=== PATIENT | female | born 1930 | race Caucasian/White ===

== ENCOUNTER 2017-06-01 22:41 | Inpatient (IN) | payer MEDICARE ==
[~2017-06-01] VITALS: Ht 180.3 cm; Wt 60.8 kg
[2017-06-01] MEDS ORDERED: METO-357 PO (23:58)
[2017-06-01] MEDS ORDERED: MAGN400T6 PO (23:58)
[2017-06-01] MEDS ORDERED: [UNRECOGNIZED DRUG - CODE] SQ (23:58)
[2017-06-01] MEDS ORDERED: VENL150T PO (23:58)
[2017-06-01] MEDS ORDERED: DIVA125C5 PO (23:58)
[2017-06-01] MEDS ORDERED: ASPI-605 PO (23:58)
[2017-06-01] MEDS ORDERED: DIVA250T6 PO (23:58)
--- NOTE | 2017-06-02 | NUR ---
Patient medically cleared by Dr. Davis.
--- NOTE | 2017-06-02 00:50 | NUR ---
Spoke with Kris Dorsey, states will come to evaluate patient.
--- NOTE | 2017-06-02 01:20 | NUR ---
Kris Dorsey at bedside for psych eval.
--- NOTE | 2017-06-02 02:49 | NUR ---
Passed report to Carlie Underwood.
--- NOTE | 2017-06-02 04:00 | NUR ---
AT APPROX 0330 ADMITTED 87 YEAR OLD FEMALE TO [facility] ON A 5150 HOLD FOR GD. PATIENT LIVES AT [facility] IN [place] AND WAS TRANSFERRED TO [facility] ON 05/25/17 DUE TO A RECENT FALL. PER HOLD PATIENT BECOME AGGRESSIVE TOWARD STAFF, THROWING OBJECTS AT STAFF, REFUSING CARE, COMBATIVE, AGITATION, REFUSING ASSISTANCE WITH AMBULATION WHICH LEAD TO SEVERAL FALLS AT HER FACILITY. HOLD STARED ON 06/02/17 AT 0130 AND WILL END ON 06/05/17 AT 0130. PT WAS MEDICALLY CLEARED AT [facility]. UA WAS NEGATIVE, CT SCAN NEGATIVE. CHEST X RAY NEGATIVE, NO FX. VALPROIC ACID LEVELS 59. PT HAS A H/O A-FIB, HTN, CKD, AND DEPRESSION. AT TIME OF ADMISSION, PT WAS NOTED A/O X1, CONFUSED. WAS NOTED YELLING, BELLIGERENT, COMBATIVE, PARANOID, DELUSIONAL. V/S STABLE AT THIS TIME. BODY ASSESSMENT: MULTIPLE FACIAL BRUISING NOTED WITH EDEMA ON LEFT CHEEK. ABRASION NOTED IN LEFT AND RIGHT LATERAL ASPECT OF FOREHEAD. LACERATION/SUTURES NOTED IN RIGHT LATERAL ASPECT OF FOREHEAD, ECCHYMOSIS NOTED ON LEFT AND RIGHT SIDE OF NECK, LEFT POSTERIOR SHOULDER, LEFT FLANK, AND RIGHT KNEE. RED RASHES NOTED ON BOTH LEFT AND RIGHT BREAST AND UNDER ARM. PT WILL BE UNDER THE CARE OF DR. OLEARY.
[2017-06-02] MEDS ORDERED: MAG HYDROX/AL HYDROX/SIMETH 30 ML LIQUID UDC PO PRN (05:15)
[2017-06-02] MEDS ORDERED: MAGNESIUM HYDROXIDE 30 ML LIQUID UDC PO PRN (05:15)
[2017-06-02 06:02] VITALS: BP 112/67
--- NOTE | 2017-06-02 07:01 | NUR ---
PATIENT REFUSED BLOOD DRAWN, CONTINUE YELLING AND BELLIGERENT. WILL CONTINUE TO MONITOR.
--- NOTE | 2017-06-02 07:27 | NUR ---
SPOKE VIA PHONE CALL WITH DAUGHTER AUSTEN WHO SHE STATED THAT SHE HAS A POWER OF FINANCE EFFECTIVENESS MANAGER. SHE ALSO STATED THAT PT WAS LIVING IN A FACILITY UP UNTIL FEB 2017, THEN SHE COME TO LIVE WITH HER. AT THAT TIME, BX STARTED, DELUSIONS PARANOID, HAVING MULTIPLE FALL. SHE ALSO STATED THAT SHE IS UP TO DAY WITH IMMUNIZATIONS. WILL CONTINUE TO MONITOR.
--- NOTE | 2017-06-02 08:00 | NUR ---
Gps/Supervisor Estimator And Drafter- Loud kept talking to herself. Tried to reorient patient, , confused,labile, unable tyo follow directions.Refusing to eat breakfast when set up. Safety reviewed emphasized. Multiple patches of bruising to her neck,face and extremities, right side of forehead sutures , rashes underneath her breast. Resistive to her am care.
--- NOTE | 2017-06-02 14:27 | NUR ---
Gps/And Drying Supervisor Cooking Casing- Constantly talking incoherently, singing at times, calling out , when asked why she's yelling and calling out, pt. repeated same questions asked, and perseverate .
[2017-06-02 15:00] VITALS: BP 148/82
[2017-06-02] MEDS: OLANZAPINE ZYDIS 5 MG TAB.RAPDIS PO SCH (17:00)
[2017-06-02] MEDS: DIVALPROEX 125 MG TABLET.DR PO SCH (17:00)
[2017-06-02] MEDS ORDERED: CLONIDINE-TTS 1 PATCH TD SCH (20:00)
[2017-06-02 20:19] VITALS: BP 149/78
[2017-06-02] MEDS: DIVALPROEX 250 MG TABLET.DR PO SCH (20:36)
[2017-06-02] MEDS: NYSTATIN CREAM 30 GM TUBE TOP SCH (20:36)
--- NOTE | 2017-06-02 23:32 | NUR ---
Pt's BP AND HR ELEVATED AT BEGINNING OF SHIFT, DR REYNOLDS NOTIFIED, CATAPRES 0.1mg PATCH ORDERED AND ADMINISTERED. UPON RE-CHECK IN 1 HOUR, BP DECREASED, BUT HR REMAINED ELEVATED. DR REYNOLDS NOTIFIED, STAT EKG ORDERED, RESULTS REPORTED TO DR REYNOLDS. Pt ASYMPTOMATIC.
[2017-06-03 07:30] VITALS: BP 114/60
[2017-06-03 08:13] LABS: ALANINE AMINOTRANSFERASE 23 U/L (14-59); ALKALINE PHOSPHATASE 57 U/L (50-136); ASPARTATE AMINOTRANSFERASE 23 U/L (15-37); BILIRUBIN,TOTAL 0.4 mg/dL (0.2-1.0); CARBON DIOXIDE 28 mmol/L (21-32); CHLORIDE 108 mmol/L (98-107); CREATININE 1.3 mg/dL (0.6-1.3); GLUCOSE 69 mg/dL (74-106); MAGNESIUM 2.1 mg/dL (1.8-2.4); POTASSIUM 3.8 mmol/L (3.5-5.1); UREA NITROGEN, BLOOD 15 mg/dL (7-18)
[2017-06-03 08:39] LABS: BASOPHILS # (AUTO) 0.1 K/uL (0.0-8.0); BASOPHILS % (AUTO) 0.9 % (0.0-2.0); EOSINOPHILS # (AUTO) 0.3 K/uL (0.0-0.7); EOSINOPHILS % (AUTO) 4.5 % (0.0-7.0); HEMOGLOBIN 10.9 g/dL (10.9-14.3); LYMPHOCYTES # (AUTO) 2.2 K/uL (20.0-40.0); LYMPHOCYTES % (AUTO) 29.1 % (20.5-51.5); MEAN CORPUSCULAR HEMOGLOBIN 31.9 uug (24.7-32.8); MEAN CORPUSCULAR HGB CONC 33 g/dL (32.3-35.6); MONOCYTES # (AUTO) 0.7 K/uL (2.0-10.0); MONOCYTES % (AUTO) 9.8 % (0.0-11.0); NEUTROPHILS # (AUTO) 4.1 K/uL (1.8-8.9); NEUTROPHILS % (AUTO) 55.7 % (38.5-71.5); PLATELET COUNT (AUTO) 263 K/uL (179-408); RED BLOOD CELL COUNT(AUTO) 3.41 MIL/uL (3.63-4.92); WHITE BLOOD COUNT (AUTO) 7.4 K/uL (3.8-11.8)
[2017-06-03 09:28] LABS: IRON, SERUM 69 ug/dL (50-175)
--- NOTE | 2017-06-03 11:00 | NUR ---
Gps/Derrick Car Operator- Noted patient was cooperative with Physical therapist, was able to ambulate with assist using the front wheel walker .Safety reviewed emphasized, also re offered new medications order, was able to take them with min. prompting with apple sauce, take, whole one pill at a time.
[2017-06-03] MEDS: ASPIRIN EC 81 MG TABLET.DR PO SCH (11:20)
[2017-06-03] MEDS: MAGNESIUM OXIDE 400 MG TABLET PO SCH (11:20)
[2017-06-03] MEDS: OLANZAPINE ZYDIS 5 MG TAB.RAPDIS PO SCH ×2 (11:20→16:18)
[2017-06-03] MEDS: DIVALPROEX 125 MG TABLET.DR PO SCH ×2 (11:20→16:18)
[2017-06-03] MEDS: VENLAFAXINE XR 150 MG CAP.SR.24H PO SCH (11:20)
[2017-06-03] MEDS: METOPROLOL SUCCINATE XL 50 MG TAB.SR.24H PO SCH (11:21)
[2017-06-03] MEDS: NYSTATIN CREAM 30 GM TUBE TOP SCH ×2 (13:39→20:45)
--- NOTE | 2017-06-03 15:14 | NUR ---
Initial DC Plan: Patient currently lives in an independent living facility [[address] [place] [address]]. Patient's daughter is trying to find an assisted living for patient. SW will follow up with MD, patient, and patient's daughter Za [[phone]] to discuss most appropriate discharge plans. SW will form a safe and proper discharge.
[2017-06-03 16:10] VITALS: BP 156/90
--- NOTE | 2017-06-03 18:47 | NUR ---
Gps/Bulb Planter- Called Trihsa Foster RUG FRAME MOUNTER to double check and clarified orders for CT chest angio, called patient's daughter Za explained reasons and procedure, a telephone consent was obtained signed by Bari DOYLE and Gustabo SELLERS. Saline lock insyte of #20 inserted on her left AC. secured with tape. Radiology was called informed .
[2017-06-03] MEDS ORDERED: NORMAL SALINE FLUSH 10 ML DISP.SYRIN ONE (19:11)
[2017-06-03] MEDS ORDERED: IV NORMAL SALINE 100 ML ONE (19:12)
[2017-06-03] MEDS ORDERED: IOHEXOL 350 100 ML INFUS..BTL ONE (19:12)
[2017-06-03] MEDS ORDERED: CELLULOSE,OXIDIZED 2x3 MC ONE (19:12)
[2017-06-03 20:41] VITALS: BP 128/84
[2017-06-03] MEDS: DIVALPROEX 250 MG TABLET.DR PO SCH (20:45)
[2017-06-03] MEDS: LORAZEPAM 0.5 MG TABLET PO PRN (20:46)
--- NOTE | 2017-06-04 01:37 | NUR ---
GPS/NSG Patient first observed awake in hallway, restless sitting in lina-chair. Confused, disorganized. Patient scheduled for CT scan with contrast. Patient escorted to radiology by DATA COLLECTION ASSOCIATE at approx 2200 hours via wheelchair. Patient returned to the unit about thirty minutes later, with a warm compress applied by staff in radiology, patient's IV line had infiltrated, one and a half hour later physician contacted to inform that swelling remained present, saline lock removed and arm elevated. Dr. Puentes's order was to apply a cold compress for fifteen minutes and reassess in a.m. Will continue to monitor and contact physician as needed.
[2017-06-04 07:30] VITALS: BP 138/97
[2017-06-04] MEDS: ASPIRIN EC 81 MG TABLET.DR PO SCH (09:47)
[2017-06-04] MEDS: VENLAFAXINE XR 150 MG CAP.SR.24H PO SCH (09:47)
[2017-06-04] MEDS: MAGNESIUM OXIDE 400 MG TABLET PO SCH (09:47)
[2017-06-04] MEDS: DIVALPROEX 125 MG TABLET.DR PO SCH ×2 (09:47→17:24)
[2017-06-04] MEDS: METOPROLOL SUCCINATE XL 50 MG TAB.SR.24H PO SCH (09:48)
[2017-06-04] MEDS: OLANZAPINE ZYDIS 5 MG TAB.RAPDIS PO SCH ×2 (09:48→17:24)
[2017-06-04] MEDS: NYSTATIN CREAM 30 GM TUBE TOP SCH ×2 (09:48→21:05)
[2017-06-04 15:00] VITALS: BP 102/79
[2017-06-04 20:00] VITALS: BP 104/72
[2017-06-04] MEDS: LORAZEPAM 0.5 MG TABLET PO PRN (21:04)
[2017-06-04] MEDS: DIVALPROEX 250 MG TABLET.DR PO SCH (21:04)
[2017-06-05 07:30] VITALS: BP 155/95
[2017-06-05] MEDS: METOPROLOL SUCCINATE XL 50 MG TAB.SR.24H PO SCH (09:52)
[2017-06-05] MEDS: ASPIRIN EC 81 MG TABLET.DR PO SCH (09:53)
[2017-06-05] MEDS: OLANZAPINE ZYDIS 5 MG TAB.RAPDIS PO SCH ×2 (09:53→17:34)
[2017-06-05] MEDS: VENLAFAXINE XR 150 MG CAP.SR.24H PO SCH (09:53)
[2017-06-05] MEDS: DIVALPROEX 125 MG TABLET.DR PO SCH ×2 (09:53→17:35)
[2017-06-05] MEDS: MAGNESIUM OXIDE 400 MG TABLET PO SCH (13:47)
[2017-06-05] MEDS: NYSTATIN CREAM 30 GM TUBE TOP SCH ×2 (13:50→21:18)
[2017-06-05 16:17] VITALS: BP 137/50
[2017-06-05] MEDS: LORAZEPAM 0.5 MG TABLET PO PRN (18:07)
[2017-06-05 20:07] VITALS: BP 154/84
[2017-06-05] MEDS: DIVALPROEX 250 MG TABLET.DR PO SCH (21:18)
[2017-06-05] MEDS: Z GUARD REMEDY PASTE 57 GM TUBE TOP SCH (21:18)
--- NOTE | 2017-06-06 07:30 | NUR ---
Sleeping comfortably. Not in distress
[2017-06-06 07:48] LABS: BASOPHILS # (AUTO) 0.1 K/uL (0.0-8.0); EOSINOPHILS # (AUTO) 0.4 K/uL (0.0-0.7); EOSINOPHILS % (AUTO) 5.5 % (0.0-7.0); HEMATOCRIT 34.3 % (31.2-41.9); HEMOGLOBIN 11.3 g/dL (10.9-14.3); LYMPHOCYTES % (AUTO) 25.1 % (20.5-51.5); MEAN CORPUSCULAR HEMOGLOBIN 31.8 uug (24.7-32.8); MEAN CORPUSCULAR HGB CONC 33 g/dL (32.3-35.6); MEAN CORPUSCULAR VOLUME 96.3 fL (75.5-95.3); MONOCYTES # (AUTO) 0.7 K/uL (2.0-10.0); MONOCYTES % (AUTO) 8.7 % (0.0-11.0); NEUTROPHILS # (AUTO) 4.7 K/uL (1.8-8.9); NEUTROPHILS % (AUTO) 59.7 % (38.5-71.5); PLATELET COUNT (AUTO) 269 K/uL (179-408); RED BLOOD CELL COUNT(AUTO) 3.56 MIL/uL (3.63-4.92); WHITE BLOOD COUNT (AUTO) 7.8 K/uL (3.8-11.8)
[2017-06-06 07:56] LABS: ALANINE AMINOTRANSFERASE 20 U/L (14-59); ALKALINE PHOSPHATASE 57 U/L (50-136); ASPARTATE AMINOTRANSFERASE 30 U/L (15-37); BILIRUBIN,TOTAL 0.3 mg/dL (0.2-1.0); CARBON DIOXIDE 25 mmol/L (21-32); CHLORIDE 110 mmol/L (98-107); CREATININE 1.6 mg/dL (0.6-1.3); GLUCOSE 74 mg/dL (74-106); MAGNESIUM 2.1 mg/dL (1.8-2.4); PHOSPHOROUS 4.7 mg/dL (2.5-4.9); POTASSIUM 4.3 mmol/L (3.5-5.1); TOTAL PROTEIN, SERUM 6.2 g/dL (6.4-8.2); UREA NITROGEN, BLOOD 23 mg/dL (7-18)
[2017-06-06] MEDS: MAGNESIUM OXIDE 400 MG TABLET PO SCH (09:05)
[2017-06-06] MEDS: ASPIRIN EC 81 MG TABLET.DR PO SCH (09:05)
[2017-06-06] MEDS: DIVALPROEX 125 MG TABLET.DR PO SCH ×2 (09:05→18:14)
[2017-06-06] MEDS: VENLAFAXINE XR 150 MG CAP.SR.24H PO SCH (09:05)
[2017-06-06] MEDS: METOPROLOL SUCCINATE XL 50 MG TAB.SR.24H PO SCH (09:06)
[2017-06-06] MEDS: OLANZAPINE ZYDIS 5 MG TAB.RAPDIS PO SCH ×2 (09:06→20:58)
[2017-06-06] MEDS: Z GUARD REMEDY PASTE 57 GM TUBE TOP SCH ×2 (09:07→20:59)
[2017-06-06] MEDS: NYSTATIN CREAM 30 GM TUBE TOP SCH ×2 (09:07→20:59)
--- NOTE | 2017-06-06 12:30 | NUR ---
Awake, incontinence care done. Transferred to lina chair, Daughter assisting with meal.
[2017-06-06 15:25] VITALS: BP 154/96
--- NOTE | 2017-06-06 15:42 | NUR ---
Firearms Reporting: JOSE submitted Mental Health Report to [facility] on 06/06.
[2017-06-06] MEDS: LORAZEPAM 0.5 MG TABLET PO PRN (16:24)
[2017-06-06] MEDS: AMLODIPINE 5 MG TABLET PO SCH (16:24)
--- NOTE | 2017-06-06 16:24 | NUR ---
Restless, agitated, confused, screaming. Ativan po given
--- NOTE | 2017-06-06 18:26 | NUR ---
Calm, cooperative with care and taking of medication. Sutures on both sides of forehead removed. Noted Skin tear on RFA, skin care done.
[2017-06-06 20:45] VITALS: BP 113/64
[2017-06-06] MEDS: DIVALPROEX 250 MG TABLET.DR PO SCH (20:59)
[2017-06-07] MEDS: TEMAZEPAM 7.5 MG CAPSULE PO PRN (00:20)
--- NOTE | 2017-06-07 06:58 | NUR ---
Slept 6.30 hrs last night after was given restoril po as ordered. Was taken picture for RFA skin tear, and left buttock scab wound.
[2017-06-07 07:30] VITALS: BP 141/72
[2017-06-07] MEDS: OLANZAPINE ZYDIS 5 MG TAB.RAPDIS PO SCH ×4 (09:00→20:54)
[2017-06-07] MEDS: METOPROLOL SUCCINATE XL 50 MG TAB.SR.24H PO SCH ×3 (09:00→16:48)
[2017-06-07] MEDS: AMLODIPINE 5 MG TABLET PO SCH ×3 (09:00→16:48)
[2017-06-07] MEDS: MAGNESIUM OXIDE 400 MG TABLET PO SCH ×2 (09:00→09:50)
[2017-06-07] MEDS: VENLAFAXINE XR 150 MG CAP.SR.24H PO SCH ×2 (09:00→09:50)
[2017-06-07] MEDS: DIVALPROEX 125 MG TABLET.DR PO SCH ×3 (09:00→16:47)
[2017-06-07 09:44] LABS: BASOPHILS # (AUTO) 0.1 K/uL (0.0-8.0); BASOPHILS % (AUTO) 0.6 % (0.0-2.0); EOSINOPHILS # (AUTO) 0.4 K/uL (0.0-0.7); EOSINOPHILS % (AUTO) 3.7 % (0.0-7.0); HEMATOCRIT 36.1 % (31.2-41.9); HEMOGLOBIN 11.9 g/dL (10.9-14.3); LYMPHOCYTES # (AUTO) 1.7 K/uL (20.0-40.0); LYMPHOCYTES % (AUTO) 18.3 % (20.5-51.5); MEAN CORPUSCULAR HEMOGLOBIN 31.9 uug (24.7-32.8); MEAN CORPUSCULAR HGB CONC 33 g/dL (32.3-35.6); MONOCYTES # (AUTO) 0.9 K/uL (2.0-10.0); MONOCYTES % (AUTO) 9.2 % (0.0-11.0); NEUTROPHILS # (AUTO) 6.5 K/uL (1.8-8.9); NEUTROPHILS % (AUTO) 68.2 % (38.5-71.5); PLATELET COUNT (AUTO) 229 K/uL (179-408); RED BLOOD CELL COUNT(AUTO) 3.72 MIL/uL (3.63-4.92); WHITE BLOOD COUNT (AUTO) 9.5 K/uL (3.8-11.8)
[2017-06-07 09:46] LABS: ALANINE AMINOTRANSFERASE 27 U/L (14-59); ALKALINE PHOSPHATASE 63 U/L (50-136); ASPARTATE AMINOTRANSFERASE 38 U/L (15-37); BILIRUBIN,TOTAL 0.4 mg/dL (0.2-1.0); CARBON DIOXIDE 26 mmol/L (21-32); CHLORIDE 108 mmol/L (98-107); CREATINE KINASE, TOTAL 27 U/L (26-192); CREATININE 1.7 mg/dL (0.6-1.3); GLUCOSE 69 mg/dL (74-106); MAGNESIUM 2.4 mg/dL (1.8-2.4); PHOSPHOROUS 4.5 mg/dL (2.5-4.9); TOTAL PROTEIN, SERUM 6.4 g/dL (6.4-8.2); UREA NITROGEN, BLOOD 21 mg/dL (7-18)
[2017-06-07] MEDS: ASPIRIN EC 81 MG TABLET.DR PO SCH (09:50)
[2017-06-07] MEDS: NYSTATIN CREAM 30 GM TUBE TOP SCH ×2 (09:51→20:54)
[2017-06-07] MEDS: Z GUARD REMEDY PASTE 57 GM TUBE TOP SCH ×2 (09:52→20:55)
--- NOTE | 2017-06-07 10:52 | NUR ---
Discharge Planning Note: On 06/02, JOSE met with patient's daughter Za [[phone]] [id number] to discuss discharge planning. SW discussed placement options with Za and connected her to Bhupendra at [facility] [[phone]] to assist with finding an Assisted Living for patient. On 06/03, JOSE returned a phone call from Za to further discuss discharge planning. Za expressed that this experience is new for her and patient and that she is feeling overwhelmed. SW assured Za that she is available and will support her in finding appropriate placement for patient. On 06/06, JOSE saw Za briefly on unit. Za stated she will be touring Assisted Living facilities. On 06/07, JOSE left a voicemail for Za to follow up regarding discharge planning and provide support. JOSE will continue to follow up with patient's family.
--- NOTE | 2017-06-07 14:08 | NUR ---
Discharge Planning Note: JOSE faxed inquiries to half-way facilities in [facility] including: [facility] [[phone]], [facility] [[phone]], [facility] [[phone]], and [facility] [ ]. JOSE spoke with patient's daughter Za [[phone]] on unit and informed her that SW began faxing inquiries. Za stated that she is not open to facilities outside of [facility]. JOSE will continue to follow up with facilities and patient's family.
[2017-06-07 16:49] VITALS: BP 180/125
[2017-06-07 18:55] VITALS: BP 139/67
[2017-06-07 20:37] VITALS: BP 148/95
[2017-06-07] MEDS: DIVALPROEX 250 MG TABLET.DR PO SCH (20:54)
--- NOTE | 2017-06-07 21:00 | NUR ---
RECEIVED PT SITTING UP IN A NOE CHAIR IN THE HALLWAY NEAR THE NURSING STATION. HE WAS NOTED A/O X 1 TALKATIVE. DENIES PAIN OR DISCOMFORT. MEDICATION COMPLIANT AT THIS TIME. CONTINUE WITH TURNED AND REPOSITION Q2HRS R/T SKIN WOUND IN RIGHT SACRAL AREA. Z-GUARD WAS APPLY INDICATED. SAFETY EMPHASIS. WILL CONTINUE TO MONITOR CLOSELY.
[2017-06-08] MEDS: TEMAZEPAM 7.5 MG CAPSULE PO PRN (01:41)
[2017-06-08 07:30] VITALS: BP 124/61
[2017-06-08] MEDS: ASPIRIN EC 81 MG TABLET.DR PO SCH (09:00)
[2017-06-08] MEDS: NYSTATIN CREAM 30 GM TUBE TOP SCH (09:00)
[2017-06-08] MEDS: OLANZAPINE ZYDIS 5 MG TAB.RAPDIS PO SCH (09:00)
[2017-06-08] MEDS: Z GUARD REMEDY PASTE 57 GM TUBE TOP SCH (09:00)
[2017-06-08] MEDS: DIVALPROEX 125 MG TABLET.DR PO SCH ×2 (10:47→17:55)
[2017-06-08] MEDS: VENLAFAXINE XR 150 MG CAP.SR.24H PO SCH (10:47)
[2017-06-08] MEDS: MAGNESIUM OXIDE 400 MG TABLET PO SCH (10:48)
[2017-06-08] MEDS: METOPROLOL SUCCINATE XL 50 MG TAB.SR.24H PO SCH (10:48)
[2017-06-08] MEDS: AMLODIPINE 5 MG TABLET PO SCH (10:49)
--- NOTE | 2017-06-08 14:33 | NUR ---
DC Note: Patient will be discharged to [facility] [[address], [place] [address]; ] via ambulance today. JOSE spoke with Danni at [facility] to confirm discharge plans. Patient's daughter/DPAZEB Landry [[phone]] is aware and agreeable to discharge plans. Patient will follow up with Dr. Zhou (Director Compensation) and Dr. Silverman (Psychiatrist).
--- NOTE | 2017-06-08 15:34 | NUR ---
WOUND CARE CONSULT: PT SEEN FOR LEFT BUTTOCK. PT PRESENTS WITH TINY AREA OF PEELING SKIN TO LEFT BUTTOCK. SKIN IS INTACT. CONTINUE ALL SKIN PROTECTION MEASURES. DISCUSSED WITH NURSING STAFF. WILL SEE PRN. MUHAMMAD IN AGREEMENT WITH PLAN OF CARE. Addendum: 06/08/17 at 1535 by CHAVA BLOUNT RN Amended: Links added.
[2017-06-08 16:25] VITALS: BP 124/61
--- NOTE | 2017-06-08 19:08 | NUR ---
PT IS BEING DISCHARGED TO [facility]. VS ARE STABLE, NO DISTRESS NOTED. PT IS CONFUSED PER BASELINE. PT'S DAUGHTER IS AWARE AND IN AGREEMENT.
--- NOTE | 2017-06-08 19:09 | NUR ---
patient transfered to [facility] in [place] via ambulance with no belongings her daughter took what belongings she had per staff , pt left in no macute distress , report called to wily at [facility] prior to d/c
== END 2017-06-08 19:13 | DRG 885 ==
LOC: ER 22:45 → GPS 06-02 01:30
PROVIDERS: ADMIT Psychiatry & Neurology Psychiatry; ATTEND Nurse Practitioner Acute Care
DX: F29 Unspecified psychosis not due to a substance or known physiological condition (principal); N17.0 Acute kidney failure with tubular necrosis; N18.9 Chronic kidney disease, unspecified; G93.41 Metabolic encephalopathy; E44.0 Moderate protein-calorie malnutrition; I48.2 Chronic atrial fibrillation; I48.91 Unspecified atrial fibrillation; F03.90 Unspecified dementia, unspecified severity, without behavioral disturbance, psychotic disturbance, mood disturbance, and anxiety; J43.2 Centrilobular emphysema; I08.1 Rheumatic disorders of both mitral and tricuspid valves; Z68.1 Body mass index [BMI] 19.9 or less, adult; J98.11 Atelectasis; I13.10 Hypertensive heart and chronic kidney disease without heart failure, with stage 1 through stage 4 chronic kidney disease, or unspecified chronic kidney disease; Z79.01 Long term (current) use of anticoagulants; Z87.891 Personal history of nicotine dependence; S01.111D Laceration without foreign body of right eyelid and periocular area, subsequent encounter; W19.XXXD Unspecified fall, subsequent encounter; Z96.651 Presence of right artificial knee joint; Z88.2 Allergy status to sulfonamides; I67.2 Cerebral atherosclerosis; R29.6 Repeated falls
CPT/HCPCS: 36415; 70030-TC; 70450; 71045; 71275; 80164; 83550; 83735; 83970; 84100; 84155; 84165; 84443; 85025; 93005; 93307; 97116; 97530; A4663; J3490; Q9967